=== PATIENT | male | born 1950 | race Caucasian/White ===

== ENCOUNTER → 2024-02-04 | Outpatient (CLI) | payer MEDICARE, OTHER ==
[~2024-02-04] MED LIST: ACYCLOVIR400 MG PO; ASA; ASPIRIN 81M81 MG/TA2 PO; BYSTOLIC20 MG PO; CARTIA XT120 MG PO; ELIQUIS 5MG PO; FLOMAX 0.40.4 MG/CAP PO; INSLANT SQ; LANTUS100 U/ML; LIPITOR 80MG80 MG PO; LISINOPRIL20 MG PO; NORCO 325 MG-7.1 TAB PO; PREDNISONE20 MG PO; TOPROL XL 50MG50 MG PO
[2024-02-04 14:56] LABS: HEMATOCRIT 34.9 % (42.0-52.0); MEAN CELL VOLUME 89 fl (80.0-100.0); MEAN CORPUSCULAR HEMOGLOBIN 31 pg (27-31); MEAN CORPUSCULAR HGB CONC 34 g/dl (33.0-37.0); PLATELET COUNT 197 K/mm3 (130-400); RED BLOOD COUNT 3.92 M/mm3 (4.20-5.60); REDCELL DISTRIBUTION WIDTH-CV 12.1 % (11.5-14.5)
[2024-02-04 15:13] LABS: CALCIUM 9.3 mg/dL (8.4-10.2); CREATININE, serum 1.11 mg/dL (0.72-1.25); POTASSIUM 4.2 mmol/L (3.5-4.5)
== END ==
LOC: COL.LAB 14:33
PROVIDERS: Internal Medicine Interventional Cardiology
DX: R60.0 Localized edema (principal)